=== PATIENT | female | born 1955 | race Hispanic/Latino ===

== ENCOUNTER 2024-10-30 11:12 | Emergency (ER) | payer OTHER, MEDICARE ==
[~2024-10-30] VITALS: Ht 157.5 cm; Wt 81.6 kg
--- NOTE | 2024-10-30 11:20 | ERN ---
ED Note History of Present Illness Stated Complaint: CP Chief Complaint: Chest Pain Time Seen by MD: 11:17 Dictation: PATIENT IS A 69-YEAR-OLD FEMALE COMING IN TODAY VIA EMS WITH COMPLAINTS OF ANTERIOR CHEST PAIN THAT RADIATES TO HER LEFT ARM ONSET YESTERDAY. SHE DENIES SHORTNESS A BREATH NO NAUSEA VOMITING NO JAW PAIN NO BACK PAIN. STATES SHE CALLED EMS YESTERDAY HOWEVER HER FRIEND TOLD HER THAT HE WOULD WATCH OVER THROUGHOUT THE DAY BUT DID NOT TAKE HER TO THE HOSPITAL. SHE STATES THE PAIN HAS BEEN GOING ON SINCE YESTERDAY. SHE WAS GIVEN NITRO BY EMS WITHOUT BENEFIT OF AN Allergies: Coded Allergies: No Known Drug Allergies (Unverified Allergy, Unknown, 10/30/24) Past Medical History History: Not Applicable RN Note Reviewed/Agreed w/PFSH: Yes Review of System Dictation CONSTITUTIONAL: Negative except for HPI HEAD/FACE: Negative except for HPI EENT: Negative except for HPI RESPIRATORY: Negative except for HPI chest pain that radiates to left arm GASTROINTESTINAL/ABDOMINAL: Negative except for HPI GENITOURINARY: Negative except for HPI MUSCULOSKELETAL: Negative except for HPI INTEGUMENTARY: Negative except for HPI NEUROLOGICAL/PSYCH: Negative except for HPI HEMATOLOGIC/LYMPHATIC: Negative except for HPI All Systems Negative, Except as noted above. 13 point review of systems assessed and all negative except for above. Initial Vital Sign VS Vital Signs Date Time Temp Pulse Resp B/P (MAP) Pulse Ox O2 Delivery O2 Flow Rate FiO2 10/30/24 11:20 97.9 60 17 135/89 99 Room Air 0 10/30/24 12:58 21 Physical Exam Dictation Vital Signs reviewed General Appearance: Alert, oriented x 3, no acute distress, well developed, nourished. Head and Face: non-traumatic. Eyes: PERRL, pink conjunctivas, eyelid no trauma, anterior chamber with arcus senilis. Ears: Pinnas intact and no signs of trauma or erythema ear canals clear and no discharge TM no erythema Nose: No discharge, no bleeding. Oropharynx: Mouth normal, tongue pink, pharynx clear,no erythema, tonsils no exudates, no abscesses noted, mucous membrane moist Neck: Supple, non-tender, no thyromegaly, no masses, no JVD, no bruits Breast:Deferred Chest:No tenderness, no crepitus, no paradoxical movement, no retractions Lungs:Clear, well-ventilated, symmetric, no rales, no wheezing, no rhonchi, no stridor, good breath sounds bilaterally Heart: Regular rate, regular rhythm, no murmur, no gallops Vascular: no peripheral edema, Abdomen: Soft, positive bowel sounds, nondistended, no guarding, nontender, no rebound, no masses no hepatomegaly, no splenomegaly, no Villalobos's sign, no hernias. Rectal: Deferred Genital: Deferred Neurological: Normal speech, motor function intact, sensory function intact Musculoskeletal: Neck nontender, full range of motion, back nontender, full range of motion, Extremities: nontender, full range of motion Skin: Color pink, dry, no turgor, no rash, no lacerations, no abrasions, no contusions. Lymphatic: Deferred Results (Laboratory/Radiology) Laboratory/Radiology Laboratory Tests Test 10/30/24 11:43 10/30/24 14:12 White Blood Count 4.5 K/uL (4.8-10.8) L Red Blood Count 3.81 MIL/uL (4.00-5.50) L Hemoglobin 12.3 g/dL (12.0-16.0) Hematocrit 35.4 % (36-48) L Mean Corpuscular Volume 92.9 fL (79-99) Mean Corpuscular Hemoglobin 32.3 pg (27.0-33.0) Mean Corpuscular Hemoglobin Concent 34.7 g/dL (32.0-36.0) Red Cell Distribution Width 12.3 % (11.0-15.5) Platelet Count 260 K/uL (130-400) Mean Platelet Volume 8.2 fL (7.5-10.5) Immature Granulocyte % (Auto) 0.0 % (0-1) Neutrophils (%) (Auto) 50.2 % (40.0-77.0) Lymphocytes (%) (Auto) 32.9 % (21.0-51.0) Monocytes (%) (Auto) 12.2 % (3.0-13.0) Eosinophils (%) (Auto) 3.8 % (0.0-8.0) Basophils (%) (Auto) 0.9 % (0.0-5.0) Neutrophils # (Auto) 2.3 K/uL (1.8-7.7) Lymphocytes # (Auto) 1.5 K/uL (1.0-4.8) Monocytes # (Auto) 0.6 K/uL (0.1-1.0) Eosinophils # (Auto) 0.17 K/uL (0.00-0.70) Basophils # (Auto) 0.04 K/uL (0.00-0.20) Absolute Immature Granulocyte (auto 0.00 K/uL (0-1) Nucleated Red Blood Cells 0.0 % (0.0-0.19) Sodium Level 130 mmol/L (136-145) L Potassium Level 4.1 mmol/L (3.5-5.1) Chloride Level 95 mmol/L (101-111) L Carbon Dioxide Level 25 mmol/L (21-32) Blood Urea Nitrogen 11 mg/dL (7-18) Creatinine 0.7 mg/dL (0.5-1.0) Glomerular Filtration Rate Calc 93 mL/min (>90) Random Glucose 92 mg/dL (70-105) Total Calcium 9.1 mg/dL (8.5-10.1) Magnesium Level 1.40 mg/dL (1.80-2.40) L Troponin I High Sensitivity 7 ng/L (4-50) 5 ng/L (4-50) B-Type Natriuretic Peptide 102 pg/mL (0-100) H Labs Reviewed?: Yes EKG Comment: EKG sinus rhythm/heart rate 59/axis normal/no ectopy 1357, 2nd EKG normal sinus rhythm/heart rate 76/axis normal ED Course ED Course Orders Procedure Category Date Status Time Cbc With Differential LAB 10/30/24 Complete 11:18 B-Type Natriuretic LAB 10/30/24 Complete Peptide 11:18 Chest 1vw RAD 10/30/24 Resulted 11:18 12 Lead Ekg Tracing- EKG 10/30/24 Complete Technical 11:18 Magnesium LAB 10/30/24 Complete 11:18 Troponin I High LAB 10/30/24 Complete Sensitivity 11:18 Aspirin 325mg Tab PHA 10/30/24 Complete (Aspirin 325mg Tab) 11:30 Basic Metabolic Panel LAB 10/30/24 Complete 11:18 Magnesium 2gm Premix PHA 10/30/24 In Process 50ml (Magnesium 2gm 14:00 12 Lead Ekg Tracing- EKG 10/30/24 Logged Technical 13:52 Troponin I High LAB 10/30/24 Complete Sensitivity 13:52 Current Medications Medications (Trade) Dose Ordered Sig/Julio Route PRN Reason Start Time Stop Time Status Last Admin Dose Admin Aspirin (Aspirin 325mg Tab) 325 mg ONCE ONCE PO 10/30/24 11:30 10/30/24 11:31 DC 10/30/24 12:37 Magnesium Sulfate 50 ml @ 0 mls/hr PROTOCOL IV 10/30/24 14:00 11/29/24 13:59 10/30/24 14:02 Vital Signs Date Time Temp Pulse Resp B/P (MAP) Pulse Ox O2 Delivery O2 Flow Rate FiO2 10/30/24 14:11 97.9 78 16 134/72 99 Room Air* 0 21 10/30/24 12:58 97.9 83 16 153/78 99 Room Air* 0 21 10/30/24 11:20 97.9 60 17 135/89 99 Room Air 0 Second EKG normal sinus, rhythm no changes troponin seven Heart score for HEART Score Response (Comments) Value History: Low suspicion (0) 0 Age: > 65yrs (+2) 2 Risk Factors: 1-2 risk factors (+1) 1 Initial Troponin: Normal limit (0) 0 Total 3 Medical Decision Making MDM MDM: Differential diagnosis: ACS/AMI/electrolyte imbalance/dehydration/atypical chest pain/costochondritis/pneumonia/bronchitis Rationale: Tests considered and ordered secondary to shared decision making include: EKG/labs/radiology Previous outside records reviewed: Old ER visits. Risk of complication and/or morbidity or mortality of patient management: None Medications-Per medication reconciliation Need for hospitalization: Patient does not meet criteria for hospitalization. No Need for emergency major/minor surgery: No There are no social concerns with this patient. Prescription drug management follow up with her primary care doctor Prescriptions will include symptomatic care Patient's prior external medical records from other ER visits were reviewed by me as indicated. Prior testing and results from previous visits were reviewed. Prior tests were taken into account with medical decision making and resource utilization, independent historian/historians were used to obtain complete medical history. I independently interpreted the test that were performed, results were reviewed by me and considered findings on radiology if ordered. Medical management and examination interpretation discussions were had by me with other qualified healthcare professionals as indicated for the patient's care. DX & DISP Disposition: Discharge Departure Impression: Primary Impression: Atypical chest pain Additional Impressions: Hypomagnesemia, Dehydration Condition: Stable Additional Instructions: Follow-up with primary care provider in 1 to 2 days. Take medications as directed here in the emergency room. Okay to continue home medications unless otherwise discussed during your visit in the emergency room today. Return to your nearest emergency room if symptoms worsen or if there is no improvement. Call 911 if you need immediate assistance. Take Tylenol or Motrin over-the-co unter as needed and if no contraindications are present. Increase oral hydration. A wound culture or urine culture was ordered here in the emergency room department please follow-up with primary care provider and advise them to get repeat ports from our facility. If you had any Konstantin wrap/splints that were applied here, please do not remove them until you see your primary care or specialty. Increase your fluid intake. , see your primary care doctor for follow up in 1-2 days. Time of Disposition: 16:18 I have reviewed the case, and I agree with, Diagnosis and Plan IDANIA LUDWIG NP Oct 30, 2024 11:20
[2024-10-30 12:09] LABS: BASOPHILS # (AUTO) 0.04 K/uL (0.00-0.20); BASOPHILS % (AUTO) 0.9 % (0.0-5.0); EOSINOPHILS # (AUTO) 0.17 K/uL (0.00-0.70); EOSINOPHILS % (AUTO) 3.8 % (0.0-8.0); HEMATOCRIT 35.4 % (36-48); LYMPHOCYTES # (AUTO) 1.5 K/uL (1.0-4.8); LYMPHOCYTES % (AUTO) 32.9 % (21.0-51.0); MEAN CORPUSCULAR HEMOGLOBIN 32.3 pg (27.0-33.0); MEAN CORPUSCULAR HGB CONC 34.7 g/dL (32.0-36.0); MEAN CORPUSCULAR VOLUME 92.9 fL (79-99); MONOCYTES # (AUTO) 0.6 K/uL (0.1-1.0); MONOCYTES % (AUTO) 12.2 % (3.0-13.0); NEUTROPHILS # (AUTO) 2.3 K/uL (1.8-7.7); NEUTROPHILS % (AUTO) 50.2 % (40.0-77.0); PLATELET COUNT (AUTO) 260 K/uL (130-400); RED BLOOD CELL COUNT(AUTO) 3.81 MIL/uL (4.00-5.50); RED CELL DISTRIBUTION WIDTH 12.3 % (11.0-15.5); WHITE BLOOD COUNT (AUTO) 4.5 K/uL (4.8-10.8)
[2024-10-30 12:23] LABS: CREATININE 0.7 mg/dL (0.5-1.0); MAGNESIUM 1.4 mg/dL (1.80-2.40); POTASSIUM 4.1 mmol/L (3.5-5.1)
--- NOTE | 2024-10-30 12:31 | NUR ---
PT PLACED IN HALLWAY BED A AT THIS TIME. ASSUMED CARE AT THIS TIME. PT AOX4 NO SIGNS OF DISTRESS.
[2024-10-30] MEDS: ASPIRIN 325MG TAB PO ONE (12:37)
[2024-10-30 12:45] LABS: B-TYPE NATRIURETIC PEPTIDE 102 pg/mL (0-100)
--- NOTE | 2024-10-30 13:34 | EKG ---
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
--- NOTE | 2024-10-30 13:54 | HMCIMG ---
CHEST 1VW REASON: CHEST PAIN ONSET YESTERDAY COMPARISON: None. FINDINGS: Single view of the chest was obtained. Lungs are clear. Heart size is normal. There is no pulmonary vascular congestion. Mediastinum and bony thorax appear unremarkable. IMPRESSION: 1. Normal single view chest x-ray.
[2024-10-30] MEDS: MAGNESIUM 2GM PREMIX 50ML 50 ML IV SCH (14:02)
[2024-10-30 17:00] VITALS: BP 137/79; PULSE 83; RESP 16; TEMP 97.9; O2SAT 99
--- NOTE | 2024-10-30 19:49 | EKG ---
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
== END 2024-10-30 17:18 | disposition home or self-care (01) ==
LOC: EDH 11:12
DX: R07.89 Other chest pain (principal); E83.42 Hypomagnesemia; E86.0 Dehydration; Z20.822 Contact with and (suspected) exposure to COVID-19
CPT/HCPCS: 99285; 96365; 71045; 96366; 83735; 84484 ×2; 80048; 83880; 85025; 36415; 93005 ×2; J3475

== ENCOUNTER 2024-11-30 02:44 | Observation (INO) | payer MEDICARE, OTHER ==
[~2024-11-30] VITALS: Ht 157.5 cm; Wt 85.8 kg
[2024-11-30 03:22] LABS: BASOPHILS # (AUTO) 0.04 K/uL (0.00-0.20); BASOPHILS % (AUTO) 0.4 % (0.0-5.0); EOSINOPHILS # (AUTO) 0.01 K/uL (0.00-0.70); EOSINOPHILS % (AUTO) 0.1 % (0.0-8.0); HEMATOCRIT 39.9 % (36-48); IMMATURE GRANULOCYTE ABSOLUTE 0.03 K/uL (0-1); LYMPHOCYTES # (AUTO) 1.5 K/uL (1.0-4.8); LYMPHOCYTES % (AUTO) 13.9 % (21.0-51.0); MEAN CORPUSCULAR HEMOGLOBIN 32.8 pg (27.0-33.0); MEAN CORPUSCULAR HGB CONC 35.3 g/dL (32.0-36.0); MEAN CORPUSCULAR VOLUME 92.8 fL (79-99); MONOCYTES # (AUTO) 0.7 K/uL (0.1-1.0); MONOCYTES % (AUTO) 6.6 % (3.0-13.0); NEUTROPHILS # (AUTO) 8.7 K/uL (1.8-7.7); NEUTROPHILS % (AUTO) 78.7 % (40.0-77.0); PLATELET COUNT (AUTO) 254 K/uL (130-400); RED CELL DISTRIBUTION WIDTH 13.1 % (11.0-15.5)
[2024-11-30 03:39] LABS: CREATININE 0.8 mg/dL (0.5-1.0); POTASSIUM 3.6 mmol/L (3.5-5.1)
[2024-11-30 03:56] LABS: APPEARANCE,URINE CLEAR (CLEAR); BILIRUBIN,URINE NEGATIVE (NEGATIVE); COLOR,URINE YELLOW (YELLOW); GLUCOSE, URINE (UA) NEGATIVE (NEGATIVE); KETONES,URINE NEGATIVE (NEGATIVE); LEUKOCYTE ESTERASE ,URINE NEGATIVE Leu/uL (NEGATIVE); NITRATE,URINE NEGATIVE (NEGATIVE); OCCULT BLOOD,URINE NEGATIVE (NEGATIVE); PROTEIN,URINE NEGATIVE (NEGATIVE); UROBILINOGEN,URINE 0.2 mg/dL (0.2-1.0)
[2024-11-30 04:00] LABS: ADD UA MICROSCOPIC NO
[2024-11-30 04:02] LABS: B-TYPE NATRIURETIC PEPTIDE 14 pg/mL (0-100)
--- NOTE | 2024-11-30 04:14 | EKG ---
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
[2024-11-30 04:33] LABS: AMPHET/METH SCREEN,URINE NEGATIVE (NEGATIVE); BARBITURATE SCREEN, URINE NEGATIVE (NEGATIVE); BENZODIAZEPINES SCREEN,URINE NEGATIVE (NEGATIVE); CANNABINOID SCREEN,URINE NEGATIVE (NEGATIVE); COCAINE SCREEN,URINE POSITIVE (NEGATIVE); OPIATE SCREEN,URINE NEGATIVE (NEGATIVE); PHENCYCLIDINE SCREEN,URINE NEGATIVE (NEGATIVE)
--- NOTE | 2024-11-30 05:47 | NUR ---
TRIAGE EDIT TO REFLECT UDS RESUTS
[2024-11-30 06:14] LABS: ALBUMIN 3.5 g/dL (3.5-5.0); BILIRUBIN,DIRECT 0.4 mg/dL (0.0-0.3); BILIRUBIN,TOTAL 1.1 mg/dL (0.2-1.0); TOTAL PROTEIN, SERUM 7.2 g/dL (6.0-8.3)
[2024-11-30 06:33] LABS: INR 0.98 (0.85-1.15); PROTHROMBIN TIME 10.4 SEC (9.6-11.6)
--- NOTE | 2024-11-30 06:45 | ERN ---
General Chief Complaint: Multiple Complaints Stated Complaint: CP, SOB, SWELLING TO THROAT, LEFT KNEE PAIN ETOH Time Seen by MD: 02:56 Source: patient History of Present Illness Initial Comments Patient is a 69-year-old female who had a liver transplant five years ago and comes to the emergency room reeking of alcohol with complaints of shortness of breath and chest pain and emesis. Patient states that her son and she was despondent and had two lines of cocaine and drank some beer. On further que stioning I discovered the patient did not have transportation, her car was in his shop and needed about 800 dollars of repairs. She only gets about 800 dollars a month from social security. She has no family in town. In addition she was not following up with a transplant clinic right now, she needs to establish transplant care with our clinic at [facility]. Furtherm ore she was not taken any of her immunosuppressive medications for five days. She has been a prescriptions to fill she generally goes to [place] for her medications. Timing/Duration: 4-6 hours Severity: severe Associated Symptoms: chest pain, cough, headaches, nausea/vomiting, shortness of breath, weakness Allergies: Coded Allergies: No Known Drug Allergies (Unverified Allergy, Unknown, 10/30/24) Past Medical History Past Medical History: High Cholesterol, Hypertension, Other Medical History Other: LIVER TRANSPLANT (2018) Past Surgical History: Other Surgical History Other: LIVER TRANSPLANT, R KNEE Social History Social History: Drugs, ETOH Female( History) History: Not Applicable Respiratory: (+) cough, (+) short of breath Cardiovascular: (+) chest pain Gastrointestinal/Abdominal: (+) nausea, (+) vomiting, (+) abdominal pain Neuro: (+) altered mental status, (+) headache Physical Exam General Appearance: (+) severe distress, (+) obese Orientation: (+) alert Head/Face Trauma: No Eye: bilateral eye normal inspection, bilateral eye PERRL, bilateral eye EOMI Ear, Nose, Throat: (+) hearing grossly normal, (+) normal ENT inspection, (+) moist mucous membraine Neck: (+) normal inspection, (+) supple, (+) no JVD Respiratory: (+) chest non-tender, (+) well ventilated Heart: (+) regular Vascular: (+) no edema, (+) normal peripheral pulse, (+) no JVD Gastrointestinal: (+) soft, (+) no organomegaly, (+) bowel sound present, (+) abnormal bowel sounds Results Laboratory and Microbiology Lab and Micro Result Laboratory Tests Test 11/30/24 03:13 11/30/24 03:39 11/30/24 03:50 White Blood Count 11.0 K/uL (4.8-10.8) H Red Blood Count 4.30 MIL/uL (4.00-5.50) Hemoglobin 14.1 g/dL (12.0-16.0) Hematocrit 39.9 % (36-48) Mean Corpuscular Volume 92.8 fL (79-99) Mean Corpuscular Hemoglobin 32.8 pg (27.0-33.0) Mean Corpuscular Hemoglobin Concent 35.3 g/dL (32.0-36.0) Red Cell Distribution Width 13.1 % (11.0-15.5) Platelet Count 254 K/uL (130-400) Mean Platelet Volume 8.3 fL (7.5-10.5) Immature Granulocyte % (Auto) 0.3 % (0-1) Neutrophils (%) (Auto) 78.7 % (40.0-77.0) H Lymphocytes (%) (Auto) 13.9 % (21.0-51.0) L Monocytes (%) (Auto) 6.6 % (3.0-13.0) Eosinophils (%) (Auto) 0.1 % (0.0-8.0) Basophils (%) (Auto) 0.4 % (0.0-5.0) Neutrophils # (Auto) 8.7 K/uL (1.8-7.7) H Lymphocytes # (Auto) 1.5 K/uL (1.0-4.8) Monocytes # (Auto) 0.7 K/uL (0.1-1.0) Eosinophils # (Auto) 0.01 K/uL (0.00-0.70) Basophils # (Auto) 0.04 K/uL (0.00-0.20) Absolute Immature Granulocyte (auto 0.03 K/uL (0-1) Nucleated Red Blood Cells 0.0 % (0.0-0.19) Prothrombin Time 10.4 SEC (9.6-11.6) Prothromb Time International Ratio 0.98 (0.85-1.15) Sodium Level 134 mmol/L (136-145) L Potassium Level 3.6 mmol/L (3.5-5.1) Chloride Level 95 mmol/L (101-111) L Carbon Dioxide Level 23 mmol/L (21-32) Blood Urea Nitrogen 15 mg/dL (7-18) Creatinine 0.8 mg/dL (0.5-1.0) Glomerular Filtration Rate Calc 79 mL/min (>90) Random Glucose 117 mg/dL (70-105) H Total Calcium 8.6 mg/dL (8.5-10.1) Total Bilirubin 1.1 mg/dL (0.2-1.0) H Direct Bilirubin 0.4 mg/dL (0.0-0.3) H Aspartate Amino Transf (AST/SGOT) 137 U/L (10-37) H Alanine Aminotransferase (ALT/SGPT) 74 U/L (12-78) Alkaline Phosphatase 186 U/L (50-136) H Total Creatine Kinase 63 U/L (21-232) Troponin I High Sensitivity 7 ng/L (4-50) B-Type Natriuretic Peptide 14 pg/mL (0-100) Total Protein 7.2 g/dL (6.0-8.3) Albumin 3.5 g/dL (3.5-5.0) Serum Alcohol 144 mg/dL (0-10) H Troponin I < 0.05 ng/mL (0.00-0.05) Urine Color YELLOW (YELLOW) Urine Appearance CLEAR (CLEAR) Urine pH 5.0 (5.0-8.0) Urine Specific [place] 1.016 (1.001-1.031) Urine Protein NEGATIVE mg/dL (NEGATIVE) Urine Glucose (UA) NEGATIVE mg/dL (NEGATIVE) Urine Ketones NEGATIVE mg/dL (NEGATIVE) Urine Occult Blood NEGATIVE (NEGATIVE) Urine Nitrate NEGATIVE (NEGATIVE) Urine Bilirubin NEGATIVE mg/dL (NEGATIVE) Urine Urobilinogen 0.2 mg/dL (0.2-1.0) Urine Leukocyte Esterase NEGATIVE Isai/uL Urine Opiates Screen NEGATIVE (NEGATIVE) Urine Barbiturates Screen NEGATIVE (NEGATIVE) Urine Phencyclidine Screen NEGATIVE (NEGATIVE) Urine Amphetamines Screen NEGATIVE (NEGATIVE) Urine Benzodiazepines Screen NEGATIVE (NEGATIVE) Urine Cocaine Screen POSITIVE (NEGATIVE) H Urine Marijuana (THC) Screen NEGATIVE (NEGATIVE) MDM I talked to the patient when she had sobered up. We will try and admit the patient to the hospital so that we can get a pillowcase sewer involved to reestablish care with her transplant service. In the meantime we have ordered a full set of labs including PT INR to assess the patient's fluid status. renal status, liver function. The laboratory results show that the patient has a hyponatremia hypochloremia as well as hyperbilirubinemia and mildly elevated LFTs. I discussed the patient with the hospitalist and they have agreed to admit the patient. ED Course Orders Procedure Category Date Status Time Vital Signs Per CPOE 11/30/24 Transmitted Routine 02:46 B-Type Natriuretic LAB 11/30/24 Complete Peptide 02:46 Chest 1vw RAD 11/30/24 Taken 02:46 12 Lead Ekg Tracing- EKG 11/30/24 Complete Technical 02:46 Oxygen By Nc/Pulse Ox CPOE 11/30/24 Transmitted 02:46 Maintain Iv CPOE 11/30/24 Transmitted 02:46 Iv Insertion CPOE 11/30/24 Transmitted 02:46 Cardiac Monitoring CPOE 11/30/24 Transmitted 02:46 Pulse Oximetry With CPOE 11/30/24 Transmitted Vs And Prn 02:46 Cbc With Differential LAB 11/30/24 Complete 02:46 Activity: Br W/Brp CPOE 11/30/24 Transmitted With Assist 02:46 Creatine Kinase, Total LAB 11/30/24 Complete 02:46 Troponin I High LAB 11/30/24 Complete Sensitivity 02:46 Urinalysis Profile LAB 11/30/24 Complete 02:46 Troponin Poc Order LAB 11/30/24 Complete Only 02:46 Bedside Troponin-I LAB.ER 11/30/24 In Process (Poc) 02:46 Basic Metabolic Panel LAB 11/30/24 Complete 02:46 Alcohol, Blood LAB 11/30/24 Complete 03:13 Drug Screen Urine LAB 11/30/24 Complete 03:53 Hepatic Function Panel LAB 11/30/24 Complete 05:51 Prothrombin Time With LAB 11/30/24 Complete INR 06:10 Vital Signs Date Time Temp Pulse Resp B/P (MAP) Pulse Ox O2 Delivery O2 Flow Rate FiO2 11/30/24 05:43 104 14 130/95 100 Room Air* 0 21 11/30/24 03:16 98.8 119 14 119/80 97 Room Air* 0 21 11/30/24 02:46 96.4 101 20 131/84 98 Room Air DX & DISP Disposition: Inpatient Departure Impression: Primary Impression: Atypical chest pain Additional Impressions: Transaminitis, Hyponatremia Condition: Stable Referrals: ERIKA ORTEGA (PCP) HOLLY ACHARYA MD Nov 30, 2024 06:45
--- NOTE | 2024-11-30 08:11 | HMCIMG ---
PORTABLE CHEST RADIOGRAPH INDICATION: CHEST PAIN COMPARISON: 10/30/2024 FINDINGS: hall monitor leads overlie the field of view. Heart size is normal. The pulmonary vascularity and patrice appear normal. No abnormal pulmonary parenchymal opacity or consolidation identified. No significant pleural effusion noted. No pneumothorax detected. Chronic left midclavicular fracture deformity. IMPRESSION: No radiographic evidence for any acute cardiopulmonary process.
--- NOTE | 2024-11-30 08:40 | HP ---
[facility] HISTORY AND PHYSICAL Date of Service: Nov 30, 2024 Time of Service: 08:28 HISTORY OF PRESENT ILLNESS: [ ] This is a 69-year-old female that presents in the ED with chief complaints chest pain shortness a breath in vomiting. Patient has a history of liver transplant, hypertension, hyperlipidemia. However patient has not follow- up with transplant services and [facility] given to her vehicle is in the repair shop. apparently patient has not be taking her immunosuppressant medication as well. Patient reports she has been drinking alcohol and doing cocaine usage given to she has been depressed given to her son recently. We will request medical records from Liver Transplant clinic if she on prograf. She was seen in ED having DTs patient was given Ativan patient was able answer all my questions. 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 She denied chest pain or shortness for breath she is currently on room air REVIEW OF SYSTEMS A14 point are old as was obtained all relevant positives were documented otherwise RoS negative PAST MEDICAL HISTORY: [ ] Hypertension, hyperlipidemia PAST SURGICAL HISTORY: [ ] Liver transplant, right knee surgery PAST SOCIAL HISTORY: [ ] Positive for cocaine and alcohol use. FAMILY HISTORY: [ ] Noncontributory Coded Allergies: No Known Drug Allergies (Unverified Allergy, Unknown, 10/30/24) PHYSICAL EXAM GENERAL APPEARANCE: The patient is awake, alert, and oriented, in no acute cardiopulmonary distress. NEUROLOGICAL: Cranial nerves II-XII grossly intact. Motor is 5/5 in bilateral upper and lower extremities proximal to distal. No sensory deficits. HEENT: Face is symmetric. Pupils are equal and reactive. Extraocular movements are intact. NECK: Supple. No JVD. No thyromegaly. No submental, submandibular, pre- /postauricular, occipital or supraclavicular lymphadenopathy. CHEST: Normal chest expansion. No Telemetry. LUNGS: Absence of any rales, rhonchi or any wheezing. CARDIOVASCULAR: Regular. S1 and S2 normal. No appreciable rubs, murmurs or gallops. ABDOMEN: Soft, nontender, and nondistended. There is no rebound, voluntary guarding, or rigidity. : Deferred. No Brunson. EXTREMITIES: Non-edematous and not cyanotic. No clubbing. Good capillary refill. SKIN: No skin breakdown. Vital Sign (Last 24 Hours) 11/30/24 07:40 Temp 98.6 Pulse 110 Resp 20 B/P (MAP) 136/80 Pulse Ox 98 O2 Delivery Room Air* O2 Flow Rate 0 FiO2 21 LABS: Laboratory: Test 11/30/24 03:50 11/30/24 03:39 11/30/24 03:13 Range/Units Urine Color YELLOW YELLOW Urine Appearance CLEAR CLEAR Urine pH 5.0 5.0-8.0 Urine Specific [place] 1.016 1.001-1.031 Urine Protein NEGATIVE NEGATIVE mg/dL Urine Glucose (UA) NEGATIVE NEGATIVE mg/dL Urine Ketones NEGATIVE NEGATIVE mg/dL Urine Occult Blood NEGATIVE NEGATIVE Urine Nitrate NEGATIVE NEGATIVE Urine Bilirubin NEGATIVE NEGATIVE mg/dL Urine Urobilinogen 0.2 0.2-1.0 mg/dL Urine Leukocyte Esterase NEGATIVE NEGATIVE Isai/uL Urine Opiates Screen NEGATIVE NEGATIVE Urine Barbiturates Screen NEGATIVE NEGATIVE Urine Phencyclidine Screen NEGATIVE NEGATIVE Urine Amphetamines Screen NEGATIVE NEGATIVE Urine Benzodiazepines Screen NEGATIVE NEGATIVE Urine Cocaine Screen POSITIVE H NEGATIVE Urine Marijuana (THC) Screen NEGATIVE NEGATIVE Troponin I < 0.05 0.00-0.05 ng/mL White Blood Count 11.0 H 4.8-10.8 K/uL Red Blood Count 4.30 4.00-5.50 MIL/uL Hemoglobin 14.1 12.0-16.0 g/dL Hematocrit 39.9 36-48 % Mean Corpuscular Volume 92.8 79-99 fL Mean Corpuscular Hemoglobin 32.8 27.0-33.0 pg Mean Corpuscular Hemoglobin Concent 35.3 32.0-36.0 g/dL Red Cell Distribution Width 13.1 11.0-15.5 % Platelet Count 254 130-400 K/uL Mean Platelet Volume 8.3 7.5-10.5 fL Immature Granulocyte % (Auto) 0.3 0-1 % Neutrophils (%) (Auto) 78.7 H 40.0-77.0 % Lymphocytes (%) (Auto) 13.9 L 21.0-51.0 % Monocytes (%) (Auto) 6.6 3.0-13.0 % Eosinophils (%) (Auto) 0.1 0.0-8.0 % Basophils (%) (Auto) 0.4 0.0-5.0 % Neutrophils # (Auto) 8.7 H 1.8-7.7 K/uL Lymphocytes # (Auto) 1.5 1.0-4.8 K/uL Monocytes # (Auto) 0.7 0.1-1.0 K/uL Eosinophils # (Auto) 0.01 0.00-0.70 K/uL Basophils # (Auto) 0.04 0.00-0.20 K/uL Absolute Immature Granulocyte (auto 0.03 0-1 K/uL Nucleated Red Blood Cells 0.0 0.0-0.19 % Prothrombin Time 10.4 9.6-11.6 SEC Prothromb Time International Ratio 0.98 0.85-1.15 Sodium Level 134 L 136-145 mmol/L Potassium Level 3.6 3.5-5.1 mmol/L Chloride Level 95 L 101-111 mmol/L Carbon Dioxide Level 23 21-32 mmol/L Blood Urea Nitrogen 15 7-18 mg/dL Creatinine 0.8 0.5-1.0 mg/dL Glomerular Filtration Rate Calc 79 >90 mL/min Random Glucose 117 H 70-105 mg/dL Total Calcium 8.6 8.5-10.1 mg/dL Total Bilirubin 1.1 H 0.2-1.0 mg/dL Direct Bilirubin 0.4 H 0.0-0.3 mg/dL Aspartate Amino Transf (AST/SGOT) 137 H 10-37 U/L Alanine Aminotransferase (ALT/SGPT) 74 12-78 U/L Alkaline Phosphatase 186 H 50-136 U/L Total Creatine Kinase 63 21-232 U/L Troponin I High Sensitivity 7 4-50 ng/L B-Type Natriuretic Peptide 14 0-100 pg/mL Total Protein 7.2 6.0-8.3 g/dL Albumin 3.5 3.5-5.0 g/dL Serum Alcohol 144 H 0-10 mg/dL DIAGNOSTICS / RADIOLOGY: [ ] ASSESSMENT: Electrolyte derangement POA hyponatremia hypochloremia hyperbilirubinemia poa Alcohol intoxication POA Leukocytosis POA mildly elevated LFTs Social determinants POA POA Obesity BMI 37 Immunosuppression state POA History Liver transplant currently not in care with transplant services given to social determinants POA Positive cocaine POA PLAN: Admit: Medical-surgical floor condition: Fair Status: Full code IVF: NS at 75 mL/hour Consultants none Antibiotics: Nonef Labs cbc, cmp, mag+ Replace electrolytes as needed as per protocol to keep potassium above 4.0 magnesium 2.0. Home medications pending to be reviewed by RN nurse. 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 PRN: MEDICATIONS Tylenol 650 mg po every 4 hrs for fever zofran 4 mg IV every 6 hrs for n/v Hydralazine 5 mg IV every 4 hrs systolic pressure > 160 bowel regiment: lactulose 20 gm PO BID PRN constipation Pain management: Supportive measures: DVT ppx, GI ppx all questions answered time spent: > 35 min Supervising MD: Dr. Guajardo c/d This document was generated in part using voice recognition software, occasional wrong word or sound alike substitutions may have occurred due to the inherent limitations of voice recognition software. Read the chart carefully and rec ognize using context, where the substitutions have occurred. Although every effort was made to edit the content, inside sales trainer and typing errors may occur ADVANCED CARE PLANNING 1. Which of the following were discussed? Hospice Care - Yes / No Therapeutic options - Yes / No Advance Directives - Yes / No Other discussions - 2. Discussed with who? 3. Voluntary nature of this service was explained to the patient? Yes / No 4. Amount of time spent - 5. Reviewed by Physician? (if this service was performed by NPP) Yes / No ATTESTATION BY PHYSICIAN I have seen and examined the patient. I reviewed the documentation, medical decision making, and treatment plan as noted by the mid-level provider above. I agree with the findings and plan of care. MOSHE GUAJARDO MD, ELIZABETH NP Nov 30, 2024 08:40
[2024-11-30] MEDS ORDERED: PHARMACY COMMUNICATION MISC PRN (09:00)
[2024-11-30] MEDS ORDERED: PoTASSium chloRIDE 20MEQ/100ML 100 ML IV PRN (09:00)
[2024-11-30] MEDS ORDERED: MAGNESIUM 2GM PREMIX 50ML 50 ML IV PRN (09:00)
[2024-11-30] MEDS ORDERED: acetaMINOPHEN 325 MG TAB PO PRN (09:00)
[2024-11-30] MEDS ORDERED: LORazepam 2 MG/ML 1 ML VIAL IVP PRN (09:00)
[2024-11-30] MEDS ORDERED: LACTULOSE 20 GM/30 ML UDCUP PO PRN (09:00)
[2024-11-30] MEDS ORDERED: hydrALAZine 20MG/ML VIAL IV PRN (09:00)
[2024-11-30] MEDS: FOLic ACID 1 MG TABLET PO SCH (09:44)
[2024-11-30] MEDS: MULTIVITAMIN TABLET PO SCH (09:44)
[2024-11-30] MEDS: THIAMINE HCL 100 MG/ML 2ML VIAL IVP SCH (09:44)
[2024-11-30] MEDS: 0.9%NACL 1000ML 1,000 ML IV SCH (09:44)
[2024-11-30] MEDS: ondanSETRON 4MG INJ IVP PRN (10:33)
[2024-11-30] MEDS: chlordiazePOXIDE HCL 25 MG CAP PO PRN (10:45)
--- NOTE | 2024-11-30 10:50 | NUR ---
REVENUE FIELD AUDITOR John Taylor in to assess patient was made aware of HR, no new orders were given. patient noted with "tremors" lasting less than 1 minute. patient is coooperative, made comfortable in bed, no distress noted, no complaints
--- NOTE | 2024-11-30 20:43 | NUR ---
PATIENT DID NOT BRING HOME MEDICATIONS
[2024-11-30 21:37] VITALS: BP 109/67; PULSE 105; RESP 20; TEMP 98.6
[2024-11-30 21:39] VITALS: O2SAT 98
--- NOTE | 2024-11-30 21:39 | NUR ---
ADMIT PT ADMITTED TO ROOM 329 AT 2130, AAOX3, BREATHING WITH EASE ON RA AND DENIES ANY PAINS AT THIS TIME. ADMISSION CARE DONE. V/S MONITORED, STABLE. ADMISSION ASSESSMENT DONE. CONTINUED IVF OF NS FROM ER REGULATED AT 75CC/HR. STARTED ON PO POTASSIUM PER PROTOCOL. SCD'S APPLIED TO BLE. [facility] PROVIDED FOR PT USE. ADMISSION DATA BASE COMPLETED. ORIENTED TO ROOM AND UNIT. FALL PRECAUTIONS IMPLEMENTED. BED ALARM ACTIVATED. CALL LIGHT WITHIN REACH. PT ON SEIZURE PRECAUTIONS, SIDE RAILS PADDED. IN FOR MORE CARE AND MANAGEMENT. Addendum: 11/30/24 at 2224 by JOSEPH SHERMAN RN RN Amended: Links added.
[2024-11-30] MEDS: PoTASSium chloRIDE 20MEQ ER 20 MEQ ERTAB PO PRN (21:43)
[2024-11-30] MEDS ORDERED: TACR5CAP2 PO (21:48)
[2024-12-01] VITALS: BP 113/69; PULSE 95; RESP 20; TEMP 98.4
[2024-12-01] MEDS: PoTASSium chl 10% ELIXIR 20MEQ 20 MEQ/15 ML UDCUP PO PRN (03:36)
[2024-12-01 03:44] VITALS: BP 133/66; PULSE 91; RESP 20; TEMP 97.8
--- NOTE | 2024-12-01 05:35 | NUR ---
REPLACE PT SLEPT AT INTERVALS DURING THE SHIFT. NO CONCERNS VERBALIZED. NO DISTRESS NOTED. SECOND DOSE OF POTASSIUM PO GIVEN PER PROTOCOL. PT TOLERATED MED WELL. KEPT RESTED AND COMFORTABLE IN BED. CALL LIGHT WITHIN REACH. FOR MORE CARE.
[2024-12-01 08:00] VITALS: BP 154/88; PULSE 69; RESP 18; TEMP 98.6; O2SAT 100
[2024-12-01 12:00] VITALS: BP 137/78; PULSE 84; RESP 18; TEMP 98.5
--- NOTE | 2024-12-01 12:53 | NUR ---
POLY SUBSTANCE ABUSE SW met with pt who admits to alcohol and cocaine use this weekend. Pt states she gave into peer pressure, but this was her first time she ever did cocaine. Pt stated "I only did a few lines". "My neighbor is a drug dealer and it was a democrat to celebrate someone that had ." Pt denies hx of drug use, states she does drink, but does not use drugs." SW offered substance abuse resources and pt declined. Pt states she did not need, since this was her first time uses.
--- NOTE | 2024-12-01 14:42 | DS ---
Discharge Summary Hospital Course Summary: This is a 69-year-old female that presents in the ED with chief complaints chest pain shortness a breath in vomiting. Patient has a history of liver transplant, hypertension, hyperlipidemia. However patient has not follow- up with transplant services and [facility] given to her vehicle is in the repair shop. apparently patient has not be taking her immunosuppressant medication as well. Patient reports she has been drinking alcohol and doing cocaine usage given to she has been depressed given to her son recently. We will request medical records from Liver Transplant clinic if she on prograf. 12/01/2024 - patient denied chest pain and shortness of breath today, explained the patient that all these symptoms are related to the cocaine abuse and counseled her not to take any rugs and avoid alcohol which affects the liver. Patient has not reconciled the medications as she needs to be on immunosuppressant medication. Informed the patient that they are important to take regularly and consulted to continue them as soon as she gets discharged. Patient is deemed stable for discharge Procedure(s): PATIENT: GRACE DANG MR#: [id number] : 1955 SEX: F AGE: 69 LOCATION: [facility] ORDER 6 STATUS: ADM IN REPORT#: [id number] SERVICE 5 REASON: CHEST PAIN ORDERING PHYSICIAN: HOLLY ACHARYA MD PROCEDURE: CXR1VW - CHEST 1VW PORTABLE CHEST RADIOGRAPH INDICATION: CHEST PAIN COMPARISON: 10/30/2024 FINDINGS: dispensing audiologist leads overlie the field of view. Heart size is normal. The pulmonary vascularity and patrice appear normal. No abnormal pulmonary parenchymal opacity or consolidation identified. No significant pleural effusion noted. No pneumothorax detected. Chronic left midclavicular fracture deformity. IMPRESSION: No radiographic evidence for any acute cardiopulmonary process. DICTATED BY: SISI OSORIO MD DATE: 11/30/24807 ELECTRONICALLY SIGNED BY: SISI OSORIO MD DATE: 11/30/24810 Assessment/Plan: ASSESSMENT: Electrolyte derangement POA hyponatremia hypochloremia hyperbilirubinemia poa Alcohol intoxication POA Leukocytosis POA mildly elevated LFTs Social determinants POA POA Obesity BMI 37 Immunosuppression state POA History Liver transplant currently not in care with transplant services given to social determinants POA Positive cocaine POA Discharge Instructions: Avoid all stimulants like cocaine, excessive caffeine, nicotine as they can c ause heart attacks, erythematous, and hypertensive crisis Monitor for chest pain, palpitations or shortness of breath and seek immediate help if symptoms recur Continue any prescribed medications Drink plenty of fluids to help clear any toxins in support cardiovascular function Take immunosuppressants as prescribed do not skip doses Avoid NSAIDs as they can harm liver and kidneys No alcohol as it increases the risk of liver damage Check liver function tests and medication levels regularly Avoid antidiarrheal medications unless advised Seek medical attention immediately if you have any following symptoms Severe chest pain, shortness of breath, dizziness or palpitation, severe diarrhea, vomiting, dehydration or confusion, allowing of skin eyes, dark urine or severe abdominal pain, high fever of greater than 101 F or new signs of infection Home Medications: Reported Medications Tacrolimus (Prograf) 5 Mg Capsule, 4 CAP PO BID, CAP 11/30/24 New Medications: Acetaminophen (Tylenol) 325 Mg Tablet 650 MG PO Q4H PRN for TEMPERATURE GREATER THAN 101.5, #30 TAB Continued Medications: Tacrolimus (Prograf) 5 Mg Capsule 4 CAP PO BID, CAP Time spent arranging discharge: 1-30 minutes ATTESTATION BY PHYSICIAN I have seen and examined the patient. I reviewed the documentation, medical decision making, and treatment plan as noted by the Resident provider above. I agree with the findings and plan of care. Ruslan Serra MD, KEERTI K MD Dec 01, 2024 14:42
[2024-12-01] MEDS ORDERED: PoTASSium chloRIDE 20MEQ ER 20 MEQ ERTAB PO ONE (15:00)
[2024-12-01 16:00] VITALS: BP 124/55; PULSE 98; RESP 18; TEMP 98.1
[2024-12-01] MEDS ORDERED: ACET-2247 PO (17:40)
--- NOTE | 2024-12-01 18:05 | NUR ---
DCP Patient lives alone. States Brook Jordan, Daughter [phone] is her emergency contact. is retired, remains independent, and drives. able to complete ADL's on her own. has a cane and regular walker and a walker with a seat. Denies home health services and dialysis. [facility] provider comes to the home for 32 hours per week. PCP - Andres Chávez MD [facility] - [facility]. Upon discharge, states Brook Jordan, Daughter [phone] and assist with care, as needed. Denies substance abuse, rejected referral information. Addendum: 12/01/24 at 1810 by TAWNY PETERSON RN CM Amended: Links added.
[2024-12-01] MEDS ORDERED: TACROLIMUS PO SCH (21:00)
== END 2024-12-01 19:25 | disposition home or self-care (01) ==
LOC: EDH 02:44 → EDHIP 06:50 → INTOOBSV 06:50 → 3AH 21:17
PROVIDERS: ADMIT Internal Medicine; ATTEND Internal Medicine
DX: E87.8 Other disorders of electrolyte and fluid balance, not elsewhere classified (principal); E87.1 Hypo-osmolality and hyponatremia; E80.6 Other disorders of bilirubin metabolism; F10.129 Alcohol abuse with intoxication, unspecified; D72.829 Elevated white blood cell count, unspecified; E66.9 Obesity, unspecified; R07.89 Other chest pain; R11.2 Nausea with vomiting, unspecified; F32.A Depression, unspecified; R74.01 Elevation of levels of liver transaminase levels; I10 Essential (primary) hypertension; E78.00 Pure hypercholesterolemia, unspecified; M25.562 Pain in left knee; R51.9 Headache, unspecified; R79.89 Other specified abnormal findings of blood chemistry; Z94.4 Liver transplant status; Z68.37 Body mass index [BMI] 37.0-37.9, adult; Z79.899 Other long term (current) drug therapy; Z98.890 Other specified postprocedural states
CPT/HCPCS: 81003; 96374; 96376 ×2; 96361 ×2; 96375; 99285; 82550; 80076; 84484 ×2; 80048; 83880; 80305; 85025; 85610; 36415 ×2; 71045; 93005; 84132; J2405 ×2; G0378 ×3; J3411; J2060